=== PATIENT | male | born 1945 | race Caucasian/White ===

== ENCOUNTER 2021-01-14 14:47 | Inpatient (IN) | payer OTHER ==
[~2021-01-14] VITALS: Ht 172.7 cm; Wt 63.4 kg
[2021-01-14 15:11] VITALS: BP 147/84
[2021-01-14] MEDS ORDERED: NOHOMEMEDICATIONS (15:14)
[2021-01-14 15:42] LABS: ABSOLUTE BASOPHILS 0.1 thou/uL (0.0-0.2); ABSOLUTE EOSINOPHILS 0.2 thou/uL (0.0-0.7); ABSOLUTE MONOCYTES 0.6 thou/uL (0.0-1.2); ABSOLUTE NEUTROPHILS 8.1 thou/uL (1.6-8.1); EOSINOPHILS 1.7 %; HEMATOCRIT 43.3 % (42.0-52.0); HEMOGLOBIN 14.3 gm/dL (14.0-18.0); LYMPHOCYTES 10.4 %; MCH 30.6 pg (26.0-34.0); MCV 92.9 fL (80.0-100.0); MONOCYTES 6.1 %; MPV 9.2 fl. (7.2-11.1); NUCLEATED RBCS 0 /100WBC; PLATELET COUNT* 158 thou/uL (150-400); POLYS 80.8 %; RBC 4.66 mil/uL (4.50-6.00); RDW-CV 13.6 % (10.5-14.5); WBC 10.1 thou/uL (4.0-11.0)
[2021-01-14 15:48] LABS: CALCIUM 9.3 mg/dL (8.5-10.1); CREATININE 3.3 mg/dL (0.6-1.3); POTASSIUM 4.8 mmol/L (3.5-5.1)
[2021-01-14 15:53] LABS: ALBUMIN 3.4 g/dL (3.4-5.0); TOTAL BILIRUBIN 0.4 mg/dL (<0.1-1.0); TOTAL PROTEIN 7.2 g/dL (6.4-8.2)
[2021-01-14 20:43] VITALS: BP 120/74
[2021-01-14 21:03] VITALS: BP 127/81
[2021-01-15 00:33] VITALS: BP 117/75
[2021-01-15 04:19] VITALS: BP 128/73
[2021-01-15 08:00] VITALS: BP 127/83
--- NOTE | 2021-01-15 08:11 | EKG ---
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
[2021-01-15 10:11] LABS: ABSOLUTE BASOPHILS 0.1 thou/uL (0.0-0.2); ABSOLUTE EOSINOPHILS 0.2 thou/uL (0.0-0.7); ABSOLUTE LYMPHOCYTES 0.8 thou/uL (0.8-5.3); ABSOLUTE MONOCYTES 0.7 thou/uL (0.0-1.2); ABSOLUTE NEUTROPHILS 6.5 thou/uL (1.6-8.1); EOSINOPHILS 1.9 %; HEMATOCRIT 39.4 % (42.0-52.0); HEMOGLOBIN 12.8 gm/dL (14.0-18.0); LYMPHOCYTES 10.1 %; MCH 29.9 pg (26.0-34.0); MCHC 32.4 g/dL (28.0-37.0); MONOCYTES 8.9 %; MPV 9.3 fl. (7.2-11.1); NUCLEATED RBCS 0 /100WBC; PLATELET COUNT* 133 thou/uL (150-400); POLYS 78.1 %; RBC 4.28 mil/uL (4.50-6.00); RDW-CV 13.7 % (10.5-14.5); WBC 8.3 thou/uL (4.0-11.0)
[2021-01-15 10:17] LABS: CALCIUM 8.6 mg/dL (8.5-10.1); CREATININE 3.1 mg/dL (0.6-1.3); POTASSIUM 4.7 mmol/L (3.5-5.1)
[2021-01-15 12:00] VITALS: BP 129/76
[2021-01-15 17:00] VITALS: BP 114/74
[2021-01-15 21:35] VITALS: BP 124/81
[2021-01-16 02:22] LABS: URINE BILIRUBIN NEGATIVE (Negative); URINE BLOOD 1+ (Negative); URINE CLARITY CLEAR; URINE COLOR YELLOW; URINE GLUCOSE-RANDOM NEGATIVE (Negative); URINE KETONES NEGATIVE (Negative); URINE LEUKOCYTES-REFLEX NEGATIVE (Negative); URINE NITRITE-REFLEX NEGATIVE (Negative); URINE PROTEIN 2+ (Negative); URINE UROBILINOGEN 0.2 E.U./dl (0.2-1.0)
[2021-01-16 02:30] LABS: SQUAMOUS 0-3 Few /LPF (0-3)
[2021-01-16 02:31] LABS: BACTERIA-REFLEX 1-9 Few /HPF (None Seen); CASTS None Seen /LPF (None Seen); CRYSTALS None Seen /LPF (None Seen); MUCUS 0-3 Light strn/LPF (None Seen); URINE RBC 3-10 Few /HPF (0-2); URINE WBC-REFLEX 0-5 Rare /HPF (0-5)
[2021-01-16 04:04] LABS: HEMATOCRIT 37.9 % (42.0-52.0); HEMOGLOBIN 12.3 gm/dL (14.0-18.0); MCHC 32.4 g/dL (28.0-37.0); MCV 92.8 fL (80.0-100.0); MPV 9.8 fl. (7.2-11.1); RBC 4.09 mil/uL (4.50-6.00); WBC 7.7 thou/uL (4.0-11.0)
[2021-01-16 04:44] LABS: ALBUMIN 2.7 g/dL (3.4-5.0); CALCIUM 8.4 mg/dL (8.5-10.1); CREATININE 3.1 mg/dL (0.6-1.3); MAGNESIUM 2.1 mg/dL (1.8-2.4); POTASSIUM 5.1 mmol/L (3.5-5.1); TOTAL BILIRUBIN 0.2 mg/dL (<0.1-1.0); TOTAL PROTEIN 5.3 g/dL (6.4-8.2)
[2021-01-16 13:12] VITALS: BP 117/87
[2021-01-16 17:33] VITALS: BP 150/79
[2021-01-16 19:51] VITALS: BP 121/77
[2021-01-17 08:10] VITALS: BP 126/74
[2021-01-17 08:21] LABS: HEMATOCRIT 37.2 % (42.0-52.0); HEMOGLOBIN 12.1 gm/dL (14.0-18.0); MCH 29.9 pg (26.0-34.0); MCHC 32.5 g/dL (28.0-37.0); MCV 92.2 fL (80.0-100.0); MPV 9.8 fl. (7.2-11.1); RBC 4.03 mil/uL (4.50-6.00); RDW-CV 13.9 % (10.5-14.5); WBC 6.8 thou/uL (4.0-11.0)
[2021-01-17 08:47] LABS: ALBUMIN 2.6 g/dL (3.4-5.0); CALCIUM 8.7 mg/dL (8.5-10.1); CREATININE 2.7 mg/dL (0.6-1.3); MAGNESIUM 1.9 mg/dL (1.8-2.4); POTASSIUM 4.5 mmol/L (3.5-5.1); TOTAL BILIRUBIN 0.3 mg/dL (<0.1-1.0); TOTAL PROTEIN 5.8 g/dL (6.4-8.2)
[2021-01-17 12:50] VITALS: BP 142/91
[2021-01-17 17:29] VITALS: BP 146/82
[2021-01-17 21:00] VITALS: BP 130/74
[2021-01-18] VITALS: BP 138/76
[2021-01-18 07:56] LABS: HEMATOCRIT 36.6 % (42.0-52.0); HEMOGLOBIN 12.1 gm/dL (14.0-18.0); MCH 30.2 pg (26.0-34.0); MCHC 32.9 g/dL (28.0-37.0); MCV 91.8 fL (80.0-100.0); MPV 9.6 fl. (7.2-11.1); RBC 3.99 mil/uL (4.50-6.00); RDW-CV 13.6 % (10.5-14.5); WBC 6.7 thou/uL (4.0-11.0)
[2021-01-18 08:23] LABS: CALCIUM 8.9 mg/dL (8.5-10.1); CREATININE 2.6 mg/dL (0.6-1.3); MAGNESIUM 1.8 mg/dL (1.8-2.4); POTASSIUM 4.9 mmol/L (3.5-5.1)
[2021-01-18 09:00] VITALS: BP 132/76
[2021-01-18 12:24] VITALS: BP 134/88
[2021-01-18 21:00] VITALS: BP 149/85
[2021-01-19 07:06] LABS: COMPLEMENT-C4 17 mg/dL (12-38)
[2021-01-19 08:00] VITALS: BP 118/74; BP 171/82
[2021-01-19] MEDS ORDERED: CEPHALEXIN500 MG PO (09:40)
[2021-01-19] MEDS ORDERED: DOXYCYCLINE 10100 MG PO (09:40)
[2021-01-19 15:35] VITALS: BP 118/74
[2021-01-19 19:41] VITALS: BP 119/76
[2021-01-20 04:55] LABS: HEMATOCRIT 38.8 % (42.0-52.0); MCH 30.4 pg (26.0-34.0); MCHC 33.4 g/dL (28.0-37.0); MPV 10.3 fl. (7.2-11.1); RBC 4.27 mil/uL (4.50-6.00); RDW-CV 13.4 % (10.5-14.5); WBC 8.9 thou/uL (4.0-11.0)
[2021-01-20 05:13] LABS: CALCIUM 9.4 mg/dL (8.5-10.1); CREATININE 2.9 mg/dL (0.6-1.3); POTASSIUM 4.6 mmol/L (3.5-5.1)
[2021-01-20 08:00] VITALS: BP 123/76
[2021-01-20 19:28] VITALS: BP 127/78
[2021-01-21 08:00] VITALS: BP 127/84
[2021-01-21 10:08] LABS: ANTI-DNA SCREEN <1 IU/mL (0-9); ANTI-RNP 0.3 AI (0.0-0.9); ANTI-SSA <0.2 AI (0.0-0.9); ANTIJO-I AB <0.2 AI (0.0-0.9)
[2021-01-21 10:57] LABS: CALCIUM 9.4 mg/dL (8.5-10.1)
[2021-01-21 11:08] LABS: GLOBULIN TOTAL 2.2 g/dL (2.2-3.9); M-SPIKE Not Observed g/dL (Not Observed)
[2021-01-21 12:41] VITALS: BP 118/74
[2021-01-21 13:49] VITALS: BP 118/74
[2021-01-21 13:56] VITALS: BP 118/74
== END 2021-01-21 13:45 | disposition home health service (06) | DRG 602 ==
LOC: M.ERS 14:47 → M.2W 16:28 → M.TBA-ER 16:28 → M.2W 20:48 → M.3W 01-18 15:47
PROVIDERS: Emergency Medicine; Internal Medicine; Internal Medicine Nephrology; Surgery; ADMIT Internal Medicine; ATTEND Internal Medicine
PROC: 0H9DXZZ Drainage of Right Lower Arm Skin, External Approach (ICD-10-PCS; principal; 2021-01-15)
DX: L02.413 Cutaneous abscess of right upper limb (principal); N17.0 Acute kidney failure with tubular necrosis; E87.0 Hyperosmolality and hypernatremia; L03.113 Cellulitis of right upper limb; D64.9 Anemia, unspecified; Z60.2 Problems related to living alone; N18.30 Chronic kidney disease, stage 3 unspecified; Z20.822 Contact with and (suspected) exposure to COVID-19; E87.8 Other disorders of electrolyte and fluid balance, not elsewhere classified; Z79.899 Other long term (current) drug therapy; Z86.73 Personal history of transient ischemic attack (TIA), and cerebral infarction without residual deficits; Z87.891 Personal history of nicotine dependence; Z28.21 Immunization not carried out because of patient refusal; Z85.038 Personal history of other malignant neoplasm of large intestine

== ENCOUNTER 2021-03-03 15:56 | Inpatient (IN) | payer OTHER ==
[~2021-03-03] VITALS: Ht 172.7 cm; Wt 65.8 kg
[~2021-03-03 15:56] MED LIST: CEPHALEXIN500 MG PO; DOXYCYCLINE 10100 MG PO; NOHOMEMEDICATIONS
[2021-03-03 16:02] VITALS: BP 155/90
[2021-03-03 17:00] LABS: INFLUENZA A ANTIGEN Negative (Negative)
[2021-03-03 17:14] LABS: ABSOLUTE EOSINOPHILS 0.1 thou/uL (0.0-0.7); ABSOLUTE LYMPHOCYTES 0.8 thou/uL (0.8-5.3); ABSOLUTE NEUTROPHILS 8.1 thou/uL (1.6-8.1); BASOPHILS 0.4 %; EOSINOPHILS 1.5 %; HEMOGLOBIN 11.4 gm/dL (14.0-18.0); LYMPHOCYTES 8.1 %; MCH 29.8 pg (26.0-34.0); MCHC 32.6 g/dL (28.0-37.0); MCV 91.3 fL (80.0-100.0); MONOCYTES 9.9 %; MPV 8.1 fl. (7.2-11.1); NUCLEATED RBCS 0 /100WBC; PLATELET COUNT* 165 thou/uL (150-400); POLYS 80.1 %; RBC 3.84 mil/uL (4.50-6.00); RDW-CV 14.1 % (10.5-14.5); WBC 10.1 thou/uL (4.0-11.0)
[2021-03-03 17:21] LABS: CALCIUM 8.7 mg/dL (8.5-10.1); CREATININE 2.9 mg/dL (0.6-1.3); POTASSIUM 5.3 mmol/L (3.5-5.1)
[2021-03-03 17:26] LABS: ALBUMIN 2.3 g/dL (3.4-5.0); TOTAL BILIRUBIN 0.3 mg/dL (<0.1-1.0); TOTAL PROTEIN 6.1 g/dL (6.4-8.2)
[2021-03-03 18:19] VITALS: BP 161/93
[2021-03-03 18:57] VITALS: BP 105/66
[2021-03-03 20:00] VITALS: BP 110/70
[2021-03-04] VITALS (7 sets, daily range): BP systolic 104–142; BP diastolic 62–81
--- NOTE | 2021-03-04 04:49 | NUR ---
ASSESSMENT COMPLETED ON PT AT BEGINNING OF SHIFT. PT WITH FLUIDS/ANTIBIOTICS INFUSING PER DR ORDER. PT IS ON ROOM AIR. PT UP WITH STANDBY TO BATHROOM. PT DENIES PAIN/NAUSEA DURING THIS SHIFT. RT ARM WITH CELLULITIS AND DRAINING WOUND. PICTURE ON CHART. TELFA PAD, KERLEX AND TAPE REPLACED OLD DRESSING. OLD DRESSING WITH SERSANGEOUS DRAINAGE PRESENT. FREQUENTLY USED ITEMS AND CALL LIGHT WITHIN REACH. SIDERAILS UPX2 AND BED ALARM ON. WILL CONTINUE TO MONITOR.
[2021-03-04 05:37] LABS: ABSOLUTE BASOPHILS 0.1 thou/uL (0.0-0.2); ABSOLUTE EOSINOPHILS 0.2 thou/uL (0.0-0.7); ABSOLUTE LYMPHOCYTES 1.1 thou/uL (0.8-5.3); ABSOLUTE MONOCYTES 0.9 thou/uL (0.0-1.2); ABSOLUTE NEUTROPHILS 6.4 thou/uL (1.6-8.1); BASOPHILS 0.8 %; EOSINOPHILS 1.9 %; HEMATOCRIT 31.7 % (42.0-52.0); HEMOGLOBIN 10.3 gm/dL (14.0-18.0); LYMPHOCYTES 12.8 %; MCH 29.7 pg (26.0-34.0); MCHC 32.6 g/dL (28.0-37.0); MCV 91.1 fL (80.0-100.0); MONOCYTES 10.6 %; MPV 8.2 fl. (7.2-11.1); NUCLEATED RBCS 0 /100WBC; PLATELET COUNT* 147 thou/uL (150-400); POLYS 73.9 %; RBC 3.48 mil/uL (4.50-6.00); RDW-CV 14.1 % (10.5-14.5); WBC 8.6 thou/uL (4.0-11.0)
[2021-03-04 05:56] LABS: CALCIUM 8.4 mg/dL (8.5-10.1); CREATININE 2.6 mg/dL (0.6-1.3); POTASSIUM 5.6 mmol/L (3.5-5.1)
--- NOTE | 2021-03-04 10:01 | NUR ---
CM ASSESSMENT: PT KNOWN TO THIS CM FROM PREVIOUS ADMISSION. PT IS A&O, INDEPENDENT WITH ADL'S AND ACTIVE. PT RESIDES AT [facility]. PT USES 0 DME, BUT OWNS A CANE. PT HAS 0 HX OF SNF. PT IS CURRENTLY ON SERIVCE WITH [facility] AND PLANS TO RESUME HH WITH [facility] AT D/C. PT INFORMS THAT HE CONTINUES TO SEE THE PCP THAT WAS ARRANGED DURING HIS PREVIOUS ADMISSION WITH [facility] ([phone]). PT WILL NEED TO RESUME HH WITH [facility] AT D/C. OTHER CM D/C PLANNING NEEDS TBD AT THIS TIME. CM WILL REMAIN AVAILABLE TO ASSIST AND FOLLOW NEEDED. [facility] PHONE: [phone] FAX: [phone]
--- NOTE | 2021-03-04 10:18 | EKG ---
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 : 1945 Requested By: Carmela Fernandez Order Number: [id number] MD: Jesús Romano Measurements Intervals [place] Rate: 102 P: 49 TX: 115 QRS: 32 QRSD: 104 T: 99 QT: 354 QTc: 462 Interpretive Statements Sinus tachycardia Nonspecific T abnormalities, lateral leads Compared to ECG 01/14/2021 15:46:56 Sinus rhythm no longer present Electronically Signed On 03-04-2021 10:18:01 [employer] OTHER RANKS by Jesús Romano [email or web address] <ELECTRONICALLY SIGNED> By: Jesús Romano MD, FAC 03/04/21 1018 170 170 Jesús Romano MD, [facility] /EPI
--- NOTE | 2021-03-04 17:16 | NUR ---
PATIENT UP WITH ASSISTANCE TO BATHROOM. IVF AND SCHED ABX INFUSING ORDERED. PATIENT NPO THIS AM FOR I&D OF RIGHT ARM. NO COMPLAINTS OF PAIN. PATIENT RETURNED FROM SURGERY THIS AFTERNOON WITH BULKY DRESSING TO RIGHT ARM. [address] EMERGENCY TECHNICIAN IN PLACE. PATIENT POTASSIUM 5.6, DR. ANDERSON NOTIFIED AND ORDERS FOR KAYEXELATE; GIVEN WHEN RETURNED FROM SURGERY ORDERED.
[2021-03-05 00:21] VITALS: BP 103/68
[2021-03-05 04:41] VITALS: BP 119/70
--- NOTE | 2021-03-05 05:34 | NUR ---
PATIENT SLEPT WELL DURING THIS SHIFT. PT USES CALL LIGHT APPROPRIATELY FOR ASSISTANCE TO BATHROOM. PT DENIES PAIN/NAUSEA. PT REMAINS IN ISLATION FOR INFLUENZA. PT WITH DRESSING ON RT AC FROM I/D DONE YESTERDAY. DSG C/D/I. FLUIDS INFUSING PER DR ORDER. FREQUENTLY USED ITEMS AND CALL LIGHT WITHIN REACH. SIDERAILS UPX2 AND BED ALARM ON. WILL CONTINUE TO MONITOR.
[2021-03-05 05:54] LABS: HEMATOCRIT 29.2 % (42.0-52.0); HEMOGLOBIN 9.7 gm/dL (14.0-18.0); MCH 29.9 pg (26.0-34.0); MCHC 33.1 g/dL (28.0-37.0); MCV 90.3 fL (80.0-100.0); MPV 7.9 fl. (7.2-11.1); NUCLEATED RBCS 0 /100WBC; PLATELET COUNT* 157 thou/uL (150-400); RBC 3.23 mil/uL (4.50-6.00); RDW-CV 14.3 % (10.5-14.5); WBC 8.5 thou/uL (4.0-11.0)
[2021-03-05 06:23] LABS: ALBUMIN 1.9 g/dL (3.4-5.0); CALCIUM 7.9 mg/dL (8.5-10.1); CREATININE 2.8 mg/dL (0.6-1.3); POTASSIUM 4.8 mmol/L (3.5-5.1); TOTAL BILIRUBIN 0.2 mg/dL (<0.1-1.0); TOTAL PROTEIN 5.1 g/dL (6.4-8.2)
[2021-03-05 08:17] VITALS: BP 111/68
[2021-03-05 08:42] LABS: ABSOLUTE EOSINOPHILS 0.1 thou/uL (0.0-0.7); ABSOLUTE LYMPHOCYTES 0.9 thou/uL (0.8-5.3); ABSOLUTE NEUTROPHILS 6.5 thou/uL (1.6-8.1)
[2021-03-05 08:44] LABS: PLATELET ESTIMATE ADEQUATE
[2021-03-05 08:45] LABS: HYPOCHROMASIA Occasional
--- NOTE | 2021-03-05 10:41 | NUR ---
Nutrition: consult for wound healing. Pt with rt arm abcalberto, POD #1 I&D. WT up 5 lb from wt last month, wt is WNL. Prelabumin 16.8, albumin 1.9, Cr 2.8, BUN 39, Na 146, K now WNL after kayexalate. Pt in isolation for influenza. Nsg reported pt doing well with meals, no concerns noted. Will add Luciano BID. Assess at low nutrition risk at this time.
[2021-03-05 12:00] VITALS: BP 107/65
[2021-03-05 16:00] VITALS: BP 106/68
--- NOTE | 2021-03-05 18:52 | NUR ---
PT IS UP WITH SBA. PT IS ON 2L 02. PT HAS IV IN LT HAND. PT HAS DRESSING ON RT UPPER ARM THAT WAS CHANGED THIS SHIFT BY STUDENT . PT IS IN ISO FOR FLU B. PT DID HAVE COMPLAINT ABOUT PAIN WHICH WAS RESOLVED WITH PAIN MED. PT IS RESTING IN BED WITH CALL LIGHT IN REACH AND FALL PRECAUTIONS IN PLACE.
[2021-03-05 20:15] VITALS: BP 125/71
[2021-03-06 01:02] VITALS: BP 105/69
--- NOTE | 2021-03-06 04:48 | NUR ---
PT A&O X 4. ON 2L. MEDS GIVEN ORDERED. NORCO GIVEN X 1 FOR PAIN. DRESSING TO RT UPPER ARM C/D/I. ISOLAITON FOR FLU MAINTAINED. CALL LIGHT WITHIN REACH. WILL CONTINUE TO MONITOR.
[2021-03-06 05:30] VITALS: BP 120/77
[2021-03-06 07:59] VITALS: BP 132/74
[2021-03-06 08:00] LABS: ABSOLUTE EOSINOPHILS 0.2 thou/uL (0.0-0.7); ABSOLUTE LYMPHOCYTES 1.4 thou/uL (0.8-5.3); ABSOLUTE MONOCYTES 0.9 thou/uL (0.0-1.2); ABSOLUTE NEUTROPHILS 6.9 thou/uL (1.6-8.1); BASOPHILS 0.5 %; EOSINOPHILS 1.8 %; HEMATOCRIT 30.8 % (42.0-52.0); LYMPHOCYTES 14.6 %; MCH 29.9 pg (26.0-34.0); MCHC 32.5 g/dL (28.0-37.0); MCV 91.9 fL (80.0-100.0); MPV 7.6 fl. (7.2-11.1); NUCLEATED RBCS 0 /100WBC; PLATELET COUNT* 164 thou/uL (150-400); POLYS 73.1 %; RBC 3.35 mil/uL (4.50-6.00); RDW-CV 14.3 % (10.5-14.5); WBC 9.4 thou/uL (4.0-11.0)
[2021-03-06 08:11] LABS: ALBUMIN 1.9 g/dL (3.4-5.0); CALCIUM 8.2 mg/dL (8.5-10.1); CREATININE 2.7 mg/dL (0.6-1.3); POTASSIUM 4.4 mmol/L (3.5-5.1); TOTAL BILIRUBIN 0.2 mg/dL (<0.1-1.0); TOTAL PROTEIN 5.1 g/dL (6.4-8.2)
[2021-03-06 09:05] VITALS: BP 132/74
[2021-03-06 12:13] VITALS: BP 114/64
--- NOTE | 2021-03-06 14:05 | NUR ---
PLAN OF CARE: PLAN REMAINS FOR THE PT TO RETURN HOME AND RESUME HH WITH [facility] WHEN MEDICALLY STABLE. CALL AND FAX D/C ORDERS TO [facility] WHEN PT MEDICALLY STABLE. CM WILL REMAIN AVAILABLE TO ASSIST AND FOLLOW NEEDED. [facility] PHONE: [phone] FAX: [phone]
[2021-03-06 19:50] VITALS: BP 112/65
[2021-03-07 00:40] VITALS: BP 116/73
--- NOTE | 2021-03-07 04:00 | NUR ---
PT A&O X 4. VSS ON 2L. MEDS GIVEN ORDERED. NO C/O PAIN. UP TO BR WITH SBA. PT SLEPT MOST OF THE NIGHT. CALL LIGHT WITHIN REACH. WILL CONTINUE TO MONITOR.
[2021-03-07 05:28] VITALS: BP 123/73
[2021-03-07 07:33] LABS: ABSOLUTE EOSINOPHILS 0.2 thou/uL (0.0-0.7); ABSOLUTE NEUTROPHILS 6.4 thou/uL (1.6-8.1); BASOPHILS 0.5 %; EOSINOPHILS 2.6 %; HEMOGLOBIN 10.1 gm/dL (14.0-18.0); LYMPHOCYTES 11.8 %; MCH 29.8 pg (26.0-34.0); MCHC 32.5 g/dL (28.0-37.0); MCV 91.7 fL (80.0-100.0); MONOCYTES 11.2 %; MPV 7.8 fl. (7.2-11.1); NUCLEATED RBCS 0 /100WBC; PLATELET COUNT* 163 thou/uL (150-400); POLYS 73.9 %; RBC 3.39 mil/uL (4.50-6.00); RDW-CV 14.1 % (10.5-14.5); WBC 8.7 thou/uL (4.0-11.0)
[2021-03-07 07:44] LABS: CALCIUM 8.5 mg/dL (8.5-10.1); CREATININE 2.4 mg/dL (0.6-1.3); POTASSIUM 4.7 mmol/L (3.5-5.1); TOTAL BILIRUBIN 0.2 mg/dL (<0.1-1.0); TOTAL PROTEIN 5.2 g/dL (6.4-8.2)
[2021-03-07 08:00] VITALS: BP 159/69
[2021-03-07 17:33] VITALS: BP 110/59
[2021-03-07 20:00] VITALS: BP 118/65
[2021-03-08] VITALS: BP 121/73
[2021-03-08 04:00] VITALS: BP 120/75
--- NOTE | 2021-03-08 06:25 | NUR ---
A & O x 4 and withdrawn. His dressing to rt arm is dry and intact. VS stable, HR SR. O2 sat was in the 80's on roomair about 0100 and he was started on O2 a 2L n/c. He did request pain med at bedtime. He voided per urinal. He has sept well.
[2021-03-08 08:32] VITALS: BP 131/70
[2021-03-08 12:00] VITALS: BP 115/70
[2021-03-08 16:01] VITALS: BP 115/66
--- NOTE | 2021-03-08 18:13 | NUR ---
PT A&O X4. PT ON 2L 02. PT HAS IV IN LT HAND. PT IS UP WITH SBA. PT HAS ABSCESS ON RT ARM. PICTURES TAKEN AND ARM CLEAN AND WRAPPED. PT RESTING IN BED WITH CALL LIGHT IN REACH.
[2021-03-08 21:40] VITALS: BP 124/71
[2021-03-09] VITALS: BP 118/77
[2021-03-09 04:00] VITALS: BP 121/81
[2021-03-09 05:38] LABS: ABSOLUTE EOSINOPHILS 0.3 thou/uL (0.0-0.7); ABSOLUTE LYMPHOCYTES 0.8 thou/uL (0.8-5.3); ABSOLUTE MONOCYTES 0.9 thou/uL (0.0-1.2); ABSOLUTE NEUTROPHILS 6.3 thou/uL (1.6-8.1); BASOPHILS 0.6 %; EOSINOPHILS 3.2 %; HEMATOCRIT 29.8 % (42.0-52.0); HEMOGLOBIN 9.9 gm/dL (14.0-18.0); LYMPHOCYTES 9.7 %; MCH 30.2 pg (26.0-34.0); MCHC 33.4 g/dL (28.0-37.0); MCV 90.5 fL (80.0-100.0); MONOCYTES 10.4 %; MPV 7.9 fl. (7.2-11.1); NUCLEATED RBCS 0 /100WBC; PLATELET COUNT* 168 thou/uL (150-400); POLYS 76.1 %; RBC 3.29 mil/uL (4.50-6.00); RDW-CV 14.2 % (10.5-14.5); WBC 8.2 thou/uL (4.0-11.0)
--- NOTE | 2021-03-09 07:51 | NUR ---
PATIENT HAS SLEPT OFF AND ON DURING THE NIGHT. VSS ON 2L 02 VIA NASAL CANNULA. MEDICATIONS GIVEN ORDERED AND CHARTED. PATIENT REMAINS ON ISOLATION D/T BEING POSITIVE FOR INFLUENZA B. IV IN LEFT HAND-SL. DRESSING TO RIGHT ARM IS C/D/I. PATIENT INSTRUCTED TO USE CALL LIGHT WHEN NEEDING ASSISTANCE. HOURLY ROUNDS MADE.
[2021-03-09 08:05] VITALS: BP 126/76
[2021-03-09 09:06] LABS: CALCIUM 8.5 mg/dL (8.5-10.1); CREATININE 2.4 mg/dL (0.6-1.3); POTASSIUM 5.5 mmol/L (3.5-5.1); TOTAL BILIRUBIN 0.3 mg/dL (<0.1-1.0); TOTAL PROTEIN 5.5 g/dL (6.4-8.2)
--- NOTE | 2021-03-09 09:58 | NUR ---
PLAN OF CARE: PLAN REMAINS FOR THE PT TO RETURN HOME AND RESUME HH WITH [facility] AT D/C WHEN MEDICALLY STABLE. CM WILL REMAIN AVAILABLE TO ASSIST AND FOLLOW NEEDED.
[2021-03-09] MEDS ORDERED: ZYVOX600 MG PO (10:24)
[2021-03-09] MEDS ORDERED: NORCO5 PO (10:27)
[2021-03-09 12:27] VITALS: BP 132/74
[2021-03-09 12:34] VITALS: BP 146/73
[2021-03-09 17:06] VITALS: BP 132/74
--- NOTE | 2021-03-09 19:10 | NUR ---
Reviewed discharge teaching with patient; verbalized understanding. Drsg changed to RUE wound; picture taken. IV and ekg monitor dc'd. Discharged from unit per WC.
--- NOTE | 2021-03-10 18:06 | PATH ---
[address] [address] PATHOLOGY RPT PROCEDURE Name: CECYAUTUMN Trevon Room: [address] IN M.R.#: [id number] Admission: 03/03/21 Date of : 47 Discharge: 03/09/21 Report #: [id number] Path Case #: [id number] [facility] Accession Number: [id number] . 01 Material submitted: . arm - RIGHT ARM ABSCESS CONTENTS. Modifiers: right . 01 Clinical history: . INCISION AND DRAINAGE . 02 Diagnosis: Right arm abscess contents: - ABUNDANT FRAGMENTS OF WELL TO MODERATELY DIFFERENTIATED SQUAMOUS CELL CARCINOMA, WITH INVOLVEMENT OF MULTIPLE TISSUE EDGES. NEGATIVE FOR VASCULAR AND PERINEURAL INVASION. (ELIGIO:pit; 03/10/2021) QTP 03/10/2021 1303 Local . 02 Electronically signed: . Sanjeev Oshea MD, Pathologist NPI- [id number] . 01 Gross description: . The specimen is received in formalin, labeled "Autumn Gao, right arm abscess contents for path" and consists of a velez-hayes rubbery irregular tissue (1.8 x 1.0 x 0.5 cm). The specimen fragments upon serially sectioning and is submitted entirely in A1.([place]; 03/09/2021) DKA/DKA 03/09/2021 1705 Local . 02 Pathologist provided ICD-10: C44.622 . 02 CPT . 052041 Specimen Comment: A courtesy copy of this report has been sent to [phone], [phone] Specimen Comment: [phone] Specimen Comment: Report sent to / DR ANDERSON Performed at: [address], [place] [id number] MD Duane De La Rosa MD Phone: [phone] Performed at: [address] [address] [place], [place] [id number] MD Sanjeev Oshea MD Phone: [phone]
--- NOTE | 2021-03-12 16:21 | OP ---
[address] [address] OPERATIVE REPORT Name: AUTUMN SAM Room: [address] IN M.R.#: [id number] Admission: 03/03/21 Attend Phys: Javier Felton MD Discharge: 03/09/21 Date of : 47 Report #: [id number] THIS REPORT FOR: cc: [facility] - Clinic physician unknown [facility] - Clinic physician unknown Dmitri Leon MD ~ DATE OF SURGERY: 03/04/2021 PREPROCEDURE DIAGNOSIS: Right arm abscess. POSTPROCEDURE DIAGNOSIS: Right arm abscess. SURGEON: Dmitri Leon MD ASSISTANTS: None. PROCEDURE PERFORMED: Incision and drainage of right arm abscess. ANESTHESIA: General endotracheal anesthesia. ESTIMATED BLOOD LOSS IN MILLILITERS: 15 mL. SPECIMENS REMOVED: Cultures taken per microanalysis. COMPLICATIONS: None apparent. FINDINGS: Abscess cavity 8 x 8 x 2 cm. INDICATIONS: The patient is a 75-year-old man with a past history significant for a prior right arm abscess in January of this year. He had an incision and drainage in the Emergency Department at that time and reportedly did well, but states that he has a new abscess that developed in the same location. He describes the pain as being sharp, burning and moderate. Due to the recurrence of this abscess, it was discussed that the patient to undergo operative management rather than bedside incision and drainage. The risks, benefits and alternatives were discussed with the patient and he agreed to proceed with operative management at this time. PROCEDURE IN DETAIL: After informed consent was obtained, the patient was taken back to the operating room and placed in the supine position on the operating table. General endotracheal anesthesia was induced per the anesthesia team and this was done without complication. Preoperative antibiotics were administered. SCDs were in place and functional. The patient's right arm was prepped and draped in a usual sterile fashion. A surgical timeout was preformed with everyone present in agreement. I began by using a sharp #10 blade scalpel to incise the skin over the palpable fluid collection. [employer] [address] OPERATIVE REPORT Name: AUTUMN SAM Room: [address] IN [facility].#: [id number] Admission: 03/03/21 Attend Phys: Javier Felton MD Discharge: 03/09/21 Date of : 47 Report #: [id number] used to dissect down into the abscess cavity where there was an immediate expression of purulent fluid. Cultures were taken and passed off the field for microanalysis. A hemostat was used to break up loculations within the abscess cavity and there was more expression of purulent fluid. The wound was thoroughly irrigated with a sterile saline after all purulent fluid had been removed and suctioned clean from the cavity. The saline fluid was also suctioned clean. There was excellent hemostasis noted. The wound was then packed with half-inch iodoform Nu Gauze. The cavity was measured before its packing and it was measured to be approximately 8 cm x 8 cm x 2 cm. The patient appeared to tolerate the procedure very well and was extubated in the room before being sent to recovery in stable condition. <ELECTRONICALLY SIGNED> By: Dmitri Leon MD 03/12/21 1621 1015 [id number] Faizan Leon MD /nt
== END 2021-03-09 19:00 | disposition home health service (06) | DRG 602 ==
LOC: M.ERS 15:56 → M.2W 17:21 → M.TBA-ER 17:21 → M.2W 18:35
PROVIDERS: Nurse Practitioner Family; Physician Assistant; ADMIT Internal Medicine; ATTEND Internal Medicine
PROC: 0X9D0ZZ Drainage of Right Lower Arm, Open Approach (ICD-10-PCS; principal; 2021-03-04)
DX: L02.413 Cutaneous abscess of right upper limb (principal); E43 Unspecified severe protein-calorie malnutrition; N17.9 Acute kidney failure, unspecified; N18.4 Chronic kidney disease, stage 4 (severe); J10.1 Influenza due to other identified influenza virus with other respiratory manifestations; Z20.822 Contact with and (suspected) exposure to COVID-19; Z86.73 Personal history of transient ischemic attack (TIA), and cerebral infarction without residual deficits; Z85.030 Personal history of malignant carcinoid tumor of large intestine; Z68.22 Body mass index [BMI] 22.0-22.9, adult